=== PATIENT | female | born 1985 | race Two or more races ===

== ENCOUNTER 2017-02-12 10:22 | Observation (INO) | payer SELFPAY ==
[~2017-02-12] VITALS: Ht 167.6 cm; Wt 54.4 kg
[2017-02-12 10:56] VITALS: BP 128/52
[2017-02-12] MEDS ORDERED: SODIUM CHLORIDE 0.9% 1,000 ML IVB ONE (10:57)
[2017-02-12 10:59] LABS: Basophils # (auto) 0 uL; Basophils % (auto) 0.5 % (0.0-2.0); CONDITION Y; Eosinophils # (auto) 0 uL; Eosinophils % (auto) 0.8 % (0.0-7.0); Hematocrit 32.9 % (36.0-46.0); Hemoglobin 11.2 g/dL (12.2-16.2); Lymphocytes # (auto) 1.1 uL; Lymphocytes % (auto) 24.9 % (10.0-50.0); Mean Corpuscular Hemoglobin 29.9 pg (28.0-32.0); Mean Platelet Volume 7.9 fL (6.9-10.8); Monocytes # (auto) 0.3 uL; Monocytes % (auto) 7.7 % (0.0-12.0); Neutrophils # (auto) 2.8 uL; Neutrophils % (auto) 66.1 % (37.0-80.0); Platelet Count (auto) 284 10^3/uL (140-450); Red Cell Distribution Width 17.9 % (11.8-14.3); White Blood Cell 4.3 10^3/uL (4.4-10.8)
[2017-02-12] MEDS ORDERED: ONDANSETRON HCL 4 MG/2 ML VIAL IV ONE (11:00)
[2017-02-12 11:18] LABS: Albumin 4.2 g/dL (3.4-5.0); BUN/Creatinine Ratio 35.8; Bilirubin, Total 0.4 mg/dL (0.2-1.0); Calcium 9.1 mg/dL (8.5-10.1); Potassium 3.7 mmol/L (3.5-5.1)
[2017-02-12 11:33] LABS: INR 0.97 (0.9-1.15); Partial Thromboplastin Time 27.7 sec (22.64-33.71); Prothrombin Time 10.6 sec (9.37-12.3)
[2017-02-12] MEDS ORDERED: MORPHINE SULF INJ 2 MG/ML SYRINGE 1ML IV ONE ×2 (11:45→13:00)
[2017-02-12] MEDS ORDERED: diphenhdrAMINE HCL 50 MG/1 ML VL ONE (11:51)
[2017-02-12] MEDS ORDERED: diphenhdrAMINE HCL 50 MG/1 ML VL IV ONE ×2 (12:00→14:00)
[2017-02-12] MEDS ORDERED: PROMETHAZINE HCL 25 MG/ML 1ML IV ONE (13:00)
== END 2017-02-12 17:39 | disposition left against medical advice (07) | DRG 694 ==
LOC: ER 10:22 → OVERFLOW 10:59 → ER 17:39
PROVIDERS: ADMIT Family Medicine; ATTEND Family Medicine
DX: N20.2 Calculus of kidney with calculus of ureter (principal); K59.00 Constipation, unspecified; R11.2 Nausea with vomiting, unspecified; Z90.710 Acquired absence of both cervix and uterus; Z82.49 Family history of ischemic heart disease and other diseases of the circulatory system; Z83.3 Family history of diabetes mellitus
CPT/HCPCS: 36415; 74176; 80053; 83735; 84702; 85025; 85610; 85730; 96361; 96374; 96375; 96376; 99285; G0378; J1200; J2270; J2405; J2550